=== PATIENT | male | born 2000 | race Caucasian/White ===

== ENCOUNTER 2024-06-19 22:10 | Emergency (ER) | payer MEDICAID, SELFPAY ==
[2024-06-19 22:11] VITALS: BP 139/94; PULSE 79; PULSE 82; RESP 17; RESP 20; TEMP 36.7; O2SAT 99
[2024-06-19 22:15] VITALS: BMI 33.2
--- NOTE | 2024-06-19 22:18 | EKG_ITS ---
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
--- NOTE | 2024-06-19 22:40 | PC.NURSE ---
Dr. Ariza at the bedside.
--- NOTE | 2024-06-19 22:46 | EDNOTE_ITS ---
ED Syncope RME/HPI General Chief Complaint: Syncope / Near Syncope Stated Complaint: SYNCOPE Time Seen by Provider: 06/19/24 22:31 Source: patient Arrival date/time: 06/19/24 22:10 Mode of arrival: ambulatory Limitations: no limitations RME / HPI RME / HPI narrative: Dr. Naik?s Main ED Evaluation: 24yo male with no significant past medical history BIBA from home accompanied by his brother presents to the ED for a chief complaint of syncope. Patient states he went to use the restroom when he started having RLQ pain. Patient states something felt off , so he went back to the living room to sit down. His brother reports he turned sweaty, pale, and was complaining of blurry vision, reporting he passed out for 10-20 seconds. Patient states he continues to have RLQ pain with movement. He denies any history of similar symptoms. Denies any N/V/D or any other associated symptoms. He denies any previous abdominal surgeries. No known allergies. Related Data Allergies Allergy/AdvReac Type Severity Reaction Status Date / Time No Known Allergies Allergy Verified 06/19/24 22:16 Review of Systems Review of Systems Systems Reviewed: All systems reviewed, normal except as documented Past Medical History Past Medical History CARDIAC: Negative Cardiac Disorders or Congestive Heart Failure RESPIRATORY: Negative Chronic Obstructive Pulmonary Disease (COPD) or Asthma GENITOURINARY: Negative Renal Disease ENDOCRINE: Negative Diabetes Mellitus Type 1 or Diabetes Mellitus Type 2 HEMATOLOGIC: Negative Sickle Cell Disease Social History SMOKING STATUS: Never smoker ED Exam Narrative Physical exam: GENERAL APPEARANCE: alert and oriented x 4, well-developed, well-nourished, no acute distress VITALS: All vitals were reviewed and the pulse ox is 99% on room air, which is normal according to my interpretation. HEENT: Normocephalic, atraumatic; pupils equal, round, reactive to light; EOMI; mucous membranes pink, moist; oropharynx clear NECK: Supple LUNGS: CTABL; no wheezes, no rales, no rhonchi HEART: Regular rate, regular rhythm; normal S1, S2; no murmurs ABDOMEN: non distended; normal BS; soft, [id number] tenderness at the umbilicus, no rigidity, no guarding, no rebound; no masses, no organomegaly, no hernia. No RLQ tenderness even on deep palpation. BACK: no CVA tenderness EXTREMITIES: atraumatic; no edema NEUROLOGIC: awake; alert and oriented x4; cranial nerves II-XII grossly intact; no focal sensory or motor deficits PSYCHIATRIC: appropriate mood and affect SKIN: warm, dry, normal color; no rashes General Limitations: Present no limitations Course Quality Measures none Orders Category Date Time Status CT Screening NOW Care 06/19/24 22:48 Completed Associate Justice STAT Care 06/19/24 22:47 Completed Continuous Pulse Oximetry STAT Care 06/19/24 22:47 Completed EKG (ED ONLY) *Do not use* NOW Care 06/19/24 22:18 Completed Insert IV STAT Care 06/19/24 22:47 Completed NPO STAT Care 06/19/24 22:[address] abdomen pelvis w con Stat Exams 06/19/24 22:48 Taken EKG (ED Only) Stat Exams 06/19/24 22:18 Draft CBC Stat Lab 06/19/24 23:00 Completed Comprehensive Metabolic Panel Stat Lab 06/19/24 23:00 Completed Lipase Stat Lab 06/19/24 23:00 Completed Magnesium Stat Lab 06/19/24 23:00 Completed Urinalysis Stat Lab 06/20/24 00:09 Completed Acetaminophen Ivpb [Ofirmev Inj] Med 06/19/24 22:49 Discontinued 1,000 mg in 100 ml IV X1 Morphine Inj Med 06/19/24 22:49 Discontinued 2 mg IVP Q30M PRN Ondansetron Inj [Zofran Inj] Med 06/19/24 22:49 Discontinued 4 mg IV X1 ONE Sodium Chloride 0.9% 1000 ml [Ns] 1,000 ml Med 06/19/24 22:46 Discontinued IV 999 mls/hr Vital Signs Vital signs: Vital Signs Temperature 98.1 F 06/19/24 22:11 Pulse Rate 79 06/19/24 22:11 Respiratory Rate 17 06/19/24 22:11 Blood Pressure 139/94 H 06/19/24 22:11 Pulse Oximetry (%) 99 06/19/24 22:11 Oxygen Delivery Method Nasal Cannula 06/19/24 22:11 Oxygen Flow Rate 5 06/19/24 22:11 Syncope MDM Narrative MDM Narrative:: Scribe Attestation: 06/19/24 - Ariana Reid am scribing for and in the presence of Dr. Naik. Patient data External records reviewed:: [facility] previous records (Per chart review, patient has no previous ED visits or admissions to this facility.) Clinical information provided by:: patient Social determinants that could affect healthcare access:: none Patient has the following chronic illnesses:: none How is presenting disease/condition affected by chronic disease/condition?: no chronic disease Evaluation data The following diagnostics were reviewed and interpreted by me:: lab results, r adiology exam(s) and EKG tracing(s) Lab and/or radiology exams considered but not ordered:: none Interpretation Summary: EKG done at 2222, NSR, rate of 73, normal axis, no ectopy, inverted T-waves in V1-V4. no STEMI, according to my interpretation. CT scan of the abdomen and pelvis with intravenous contrast (axial sections with sagittal and coronal reformats) June 20, 2024 at 0040 hours Clinical History: Periumbilical pain. Comparison: None. Findings: The lung bases are clear. The gallbladder, pancreas, spleen, kidneys and adrenals are unremarkable. Hepatomegaly. No evidence of bowel obstruction. The appendix is within normal limits. There is no mesenteric or retroperitoneal adenopathy. A few scattered air-fluid levels in the small bowel without dilation or wall thickening. The urinary bladder is unremarkable. There is no free fluid or free air. The osseous structures are unremarkable. Impression: Possible mild enteritis. Hepatomegaly. Report Electronically Signed By: Andrews Perdomo 06/20/2024 2:01:55 AM [EST] Medications / Prescriptions Medications or Prescriptions considered but not ordered:: none Medication administrations:: Medication Administration History Discontinued Medications Sodium Chloride (Ns) 1,000 mls @ 999 mls/hr IV .Q1H1M ONE Stop: 06/19/24 23:46 Last Infusion: 06/20/24 00:17 Dose: Infused Documented By: Admin: 06/19/24 23:16 Dose: 999 mls/hr Documented By: KG Acetaminophen (Ofirmev Inj) 1,000 mg in 100 mls @ 250 mls/hr IV X1 ONE Stop: 06/19/24 23:12 Last Infusion: 06/19/24 23:40 Dose: Infused Documented By: Admin: 06/19/24 23:16 Dose: 250 mls/hr Documented By: KG Morphine Sulfate (Morphine Sulf Inj 10 Mg/Ml Vial) 2 mg IVP Q30M PRN PRN Reason: PAIN Last Admin: 06/19/24 23:16 Dose: 2 mg Documented By: KG Ondansetron HCl (Ondansetron Inj 2 Mg/Ml Inj 2 Ml) 4 mg IV X1 ONE; Protocol Stop: 06/19/24 22:50 Last Admin: 06/19/24 23:16 Dose: 4 mg Documented By: KG as above Consultations Consultation(s) initiated? (list below): No Diagnosis Syncope Differential Diagnosis: other (Acute appendicitis, Incarcerate Umbilical Hernia, SBO, Cholecystitis, Pancreatitis) Most likely diagnosis given after review of the tests above:: see clinical impression below Admission Indicated Admission indicated?: not indicated Admission Request Was there a request for admission?: No Disposition Plan Disposition Plan: Discharge Discharge Attestation Discharge Attestation: The patient and all family members were given an opportunity to ask questions and understood the discharge instructions. Discharge instructions specifically effects, indications for sooner follow up or return to the emergency department, and the expected course of current diagnosis. Patient condition: Stable Discharge Plan Plan Patient Disposition: HOME (Self Care) Disposition Comment: Stable for discharge home Patient condition on transfer: Stable Prescriptions/Referrals Referrals: [facility], [facility]–1983 [Outside] - In 1 week Problem List Clinical Impression: Abdominal pain, Vasovagal syncope Patient/Caregiver Discharge Instructions Discharge Activity: activity as tolerated Education Materials: Abdominal Pain, Understanding Vasovagal Syncope Additional Instructions: Please return to the emergency department if you have any worsening or any further medical problems. Otherwise you should follow-up with your primary care doctor within the next several days. Print Language: Uzbek Stand Alone Forms: Kiera Award Info., Patient Portal Info Letter
--- NOTE | 2024-06-19 22:48 | XR_ITS ---
Examination: CT abdomen with intravenous contrast CT pelvis with intravenous contrast 2-D coronal reconstructions 2-D sagittal reconstructions Date and time of exam:June 18, 2024 at 0040 hrs.. Indications: Onset periumbilical pain today CTDI: vol (mGy) 12.2 DLP: (mGycm) 773 Technique: Multiple axial sections of the abdomen and pelvis have been obtained. 64 slice high-resolution scanner used. 3 mm axial sections have been obtained, post intravenous injection 60 cc [id number] 2-D sagittal, coronal reconstructions obtained. Low dose protocols were performed. One or more of the following dose reduction techniques were used; automated exposure control, adjustment of the mA and/or KV according to patient size, use of iterative reconstruction technique. Findings: No focal liver or splenic lesions No gallstones No pancreatic or adrenal mass No renal or ureteral calculi Normal appendix 5 mm fat-containing umbilical hernia Minimally fluid distended small bowel loops No bowel obstruction No diverticulitis Normal seminal vesicles Normal prostate No bladder mass Small fat-containing umbilical hernias The osseous structures are intact Impression: 5 mm fat-containing umbilical hernia Normal appendix No bowel obstruction or diverticulitis Minimally fluid distended small bowel loops
[2024-06-19 23:02] VITALS: PULSE 85
[2024-06-19] MEDS: MORPHINE SULF INJ 10 MG/ML VIAL 2 MG IVP (23:16)
[2024-06-19] MEDS: ONDANSETRON INJ 2 MG/ML INJ 2 ML 4 MG IV (23:16)
[2024-06-19] MEDS: SODIUM CHLORIDE 0.9% 1000 ML 1,000 ML 999 ML IV (23:16)
[2024-06-19] MEDS: ACETAMINOPHEN IVPB 1,000 MG/100 ML VIAL 250 MG IV (23:16)
[2024-06-19 23:19] LABS: Basophils # (Auto) 0.1 Thou/mm3 (0.0-0.2); Basophils % (Auto) 0 % (0-2.5); Eosinophils # (Auto) 0.1 Thou/mm3 (0.0-0.5); Eosinophils % (Auto) 1 % (0-10); Hematocrit 44.4 % (41.0-53.0); Hemoglobin 15.4 g/dL (13.5-16.0); Immature Granulocytes % (Auto) 0 % (0-0); Immature Granulocytes Auto 0.05 Thou/mm3 (0.00-0.00); Lymphocytes # (Auto) 4.4 Thou/mm3 (1.0-4.8); Lymphocytes % (Auto) 30 % (10-50); Mean Corpuscular HGB Conc 34.7 g/dl (31.0-37.0); Mean Corpuscular Hemoglobin 30.2 pg (25.0-35.0); Mean Corpuscular Volume 87 fL (80-100); Monocytes # (Auto) 1.1 Thou/mm3 (0.0-0.8); Monocytes % (Auto) 8 % (0-12); Neutrophils # (Auto) 9.3 Thou/mm3 (1.8-7.7); Neutrophils % (Auto) 62 % (37-80); Nucleated Red Blood Cell % 0 /100 WBC (0); Platelet Count 367 Thou/mm3 (140-440); RDW Standard Deviation 38.3 fL (35.1-43.9)
[2024-06-19 23:34] VITALS: BP 131/80; PULSE 85; RESP 19; O2SAT 96
[2024-06-19 23:41] LABS: Alanine Aminotransferase 100 U/L (10-49); Albumin, Serum 4.9 gm/dL (3.5-5.0); Albumin/Globulin Ratio 1.6 (1.2-2.2); Alkaline Phosphatase 85 U/L (46-116); Anion Gap 11 (7-16); Aspartate Amino Transferase 44 U/L (0-34); BUN/Creatinine Ratio 10 Ratio (12-20); Bilirubin,Total 0.6 mg/dL (0.3-1.2); Blood Urea Nitrogen 12 mg/dL (9-23); Calcium 10.4 mg/dL (8.3-10.6); Calcium (Corrected) 10.4 mg/dL (8.5-10.1); Carbon Dioxide 23.7 mMol/L (20.0-31.0); Chloride 106 mMol/L (98-107); Creatinine (Component) 1.2 mg/dL (0.6-1.3); Estimated Creatinine Clearance 124.3 mL/min (>60); Glucose 97 mg/dL (74-106); Lipase 25 U/L (12-53); Magnesium 2.2 mg/dL (1.6-2.6); Osmolality,Calculated 280 (275-295); Potassium 3.7 mMol/L (3.4-5.1); Sodium 141 mMol/L (136-145); Total Protein 7.9 gm/dL (5.7-8.2); eGFR > 60 See Note
[2024-06-20 00:19] LABS: Collection Type, Urine Clean Catch; Squamous Epithelial Cell,Urine 0 /hpf (0-5)
[2024-06-20 00:39] LABS: Bilirubin,Urine Negative (Negative); Blood,Urine Negative (Negative); Clarity,Urine Clear (Clear/Hazy); Color,Urine Lt-Yellow (Lt Yel-Yel); Glucose, Urine Negative (Negative); Ketones,Urine 1+ (Negative); Leukocyte Esterase,Urine Negative (Negative); Nitrite,Urine Negative (Negative); Protein,Urine Negative (Neg - Trace); RBC,Urine 1 /hpf (0-3); Specific Gravity,Urine 1.016 (1.001-1.035); Urobilinogen,Urine Negative mg/dL (0.0-1.0); WBC,Urine 1 /hpf (0-5)
[2024-06-20 01:00] VITALS: BP 135/85; PULSE 60; RESP 18; O2SAT 95
--- NOTE | 2024-06-20 02:02 | PRELIM_ITS ---
CT scan of the abdomen and pelvis with intravenous contrast (axial sections with sagittal and coronal reformats) June 20, 2024 at 0040 hours Clinical History: Periumbilical pain. Comparison: None. Findings: The lung bases are clear. The gallbladder, pancreas, spleen, kidneys and adrenals are unremarkable. Hepatomegaly. No evidence of bowel obstruction. The appendix is within normal limits. There is no mesenteric or retroperitoneal adenopathy. A few scattered air-fluid levels in the small bowel without dilation or wall thickening. The urinary bladder is unremarkable. There is no free fluid or free air. The osseous structures are unremarkable. Impression: Possible mild enteritis. Hepatomegaly. Report Electronically Signed By: Andrews Perdomo 06/20/2024 2:01:55 AM [EST]
[2024-06-20 02:42] VITALS: BP 134/79; PULSE 71; RESP 18; O2SAT 98
== END 2024-06-20 02:44 | disposition home or self-care (01) ==
PROVIDERS: Emergency Provider Emergency Medicine
DX: R55 Syncope and collapse (principal); R10.9 Unspecified abdominal pain
CPT/HCPCS: 36415; 74177; 80053; 81001; 83690; 83735; 85025; 93005; 96361; 96365; 96375; 99285; A4649; J0131; J2270; J2405; J7030; Q9967